=== PATIENT | male | born 1975 | race Caucasian/White ===

== ENCOUNTER → 2016-10-13 | Outpatient (CLI) | payer OTHER ==
[~2016-10-13] MED LIST: CONRAY-43 43% 50ML VIAL (Q9960) As Ordered ONE
--- NOTE | 2016-10-13 10:43 | REP ---
MR arthrography right shoulder: with pre and post intra-articular gadolinium enhanced saline injected imaging: History: Right shoulder pain, limited range of motion. Pain for greater than 5 years. Technique: The injection procedure is performed and dictated separately. Pre- and post intra-articular gadolinium enhanced saline injected imaging is acquired. Imaging planes include axial, oblique coronal, oblique sagittal and ABER projection images. T1 and T2-weighted scans are included with and without fat saturation. MRI findings: Pre-injection MR imaging shows cortical and medullary bone signal intensity to be normal. There is a small amount of subacromial subdeltoid bursal effusion. There is advanced diffuse swelling and increased signal intensity in the supraspinatus tendon on pre- injection oblique coronal T1 and T2-weighted scans consistent with advanced supraspinatus tendinosis. On post injection images, there is good filling and enhancement of the glenohumeral articulation. There is anterior inferior nondisplaced glenoid labral cartilage tear on axial post injection images. ABER images confirm this. No loose body is seen. Oblique coronal T1-weighted post injection images demonstrate a fairly large area of enhancement within the supraspinatus tendon consistent with an intra-substance partial-thickness tear. No enhancement is seen in the subacromial subdeltoid bursa. There is contrast enhancement undermining the superior labrum cartilage. The infraspinatus, subscapularis, and biceps tendons appear to be intact. Impression: 1. Large partial-thickness intra-substance supraspinatus tendon cuff tear. Advanced tendonitis/tendinosis. 2. Large nondisplaced anterior cartilaginous labral tear. Suspect SLAP component as well. Signed by Abimael Bullard MD 10/13/2016 12:08 P
--- NOTE | 2016-10-13 16:59 | REP ---
Procedure: Right shoulder arthrogram The procedure was performed under the direct supervision of Dr. Bullard. History: Right shoulder pain. The benefits and risks including but not limited to pain, infection, bleeding and anaphylaxis were explained to the patient and informed consent was obtained. Technique: The right glenohumeral joint space was localized using fluoroscopic guidance. The skin was prepped and draped in a sterile fashion. 1% lidocaine was used as a local anesthetic. Using fluoroscopic guidance a 22 gauge spinal needle was inserted and advanced into the joint. 0.5 ml of Conray 43 was injected to verify placement. 11 ml of a solution containing 20 ml of sterile saline and 0.15 ml of ProHance was injected into the joint. The needle was removed and the patient was taken to MRI for postprocedural imaging. The the patient tolerated the procedure well and there were no immediate complications. 1 second of fluoro time was utilized for this procedure. Reviewed by ELAINE Ruiz 10/13/2016 04:06 PSigned by Abimael Bullard MD 10/13/2016 04:51 P
== END | disposition home or self-care (01) ==
LOC: M RADPRO 07:15
PROVIDERS: ATTEND Physician Assistant
DX: M75.101 Unspecified rotator cuff tear or rupture of right shoulder, not specified as traumatic (principal); M75.81 Other shoulder lesions, right shoulder
CPT/HCPCS: 23350; 73040; 73223; A9576; Q9960

== ENCOUNTER 2016-11-20 09:20 | Emergency (ER) | payer OTHER ==
--- NOTE | 2016-11-20 10:02 | EDDOCDS ---
Physician Documentation [facility] Name: Anthony Calvo Age: 41 yrs Sex: Male : 1975 Arrival Date: 11/20/2016 Time: 09:20 Bed TR7 [place] [facility] [place]: 11/20/16 09:57 Discharged to Home/Self Care. Impression: Acute pharyngitis, Viral infection, unspecified. - Condition is Stable. - Discharge Instructions: Pharyngitis, Mmdk-yl-Mjgf, Viral Infections, Igkq-Ma-Mzll. - Medication Reconciliation, Local Pharmacy Hours form. - Follow up: Paul Kingsley [facility]; When: Tomorrow; Reason: Further diagnostic work-up, Recheck today's complaints, Continuance of care. - Problem is new. - Symptoms are unchanged. Historical: - Allergies: no known allergies; - Home Meds: 1. baclofen 10 mg Oral tab as needed - PMHx: Chronic Back pain; - PSHx: Hernia repair- Left inguinal; Hernia repair- Right inguinal; Knee surgery- Right; - Social history: Smoking status: Patient states former smoker of tobacco. No barriers to communication noted, The patient speaks fluent Welsh, Speaks appropriately for age. - Family history: Not pertinent. - : The pt / caregiver states he / she is not on anticoagulants. Home medication list is obtained from the patient. - Exposure Risk Screening:: None identified. Vital Signs: 11/20 09:22 BP 166 / 87; Pulse 93; Resp 18; Temp 99.3; Pulse Ox 96% ; Weight 97.52 kg / 214.99 lbs; jlm Height 69 in. (175.26 cm); Pain 7/10; 09:22 Body Mass Index 31.75 (97.52 kg, 175.26 cm) jlm MDM: 09:36 Strep Screen, Nursing ordered. btw 09:42 Financial registration complete. lg 09:49 GATS (NEGATIVE STREP SCREEN) Ordered. EDMS Signatures: Dispatcher [employer] EDJohnathan Hanson, RN Zaira Patricia RN RN srm Ganter, LoriLee, Reg Reg lg Thomas Haider PA PA btw MTDD
--- NOTE | 2016-11-20 10:02 | EDDOCDS ---
Nurse's Notes [facility] Name: Anthony Calvo Age: 41 yrs Sex: Male : 1975 Arrival Date: 11/20/2016 Time: 09:20 Bed TR7 Private [place]: [place] [facility] [place]: Acute pharyngitis;Viral infection, unspecified Presentation: 11/20 09:26 Presenting complaint: Patient states: sore throat since yesterday worse today. aches bcj all over today. ? temp at home. no nasal drainage. + cough - just stopped smoking. Risk factors: Stridor is not present. Drooling is not present. Shortness of breath is not present. Cellulitis is not present. Adult Sepsis Screening: The patient does not have new or worsening altered mentation. Patient's respiratory rate is less than 22. Systolic blood pressure is greater than 100. Patient has a qSOFA score of 0- Negative Sepsis Screen. Suicide/Homicide risk assessment- the patient denies having any suicidal and/or homicidal ideations and does not present with any other emotional, behavioral or mental health complaints. Status: Transition of care: patient was not received from another setting of care. 09:26 Acuity: ERLIN Level 4 [facility] 09:26 Method Of Arrival: Walkin/Carried/Asstd [facility] Triage Assessment: 09:31 General: Appears in no apparent distress, comfortable. Pain: Pain currently is 7 out of bcj 10 on a pain scale. Pt Declines HIV testing. EENT: No deficits noted. Historical: - Allergies: no known allergies; - Home Meds: 1. baclofen 10 mg Oral tab as needed - PMHx: Chronic Back pain; - PSHx: Hernia repair- Left inguinal; Hernia repair- Right inguinal; Knee surgery- Right; - Social history: Smoking status: Patient states former smoker of tobacco. No barriers to communication noted, The patient speaks fluent Kenyan, Speaks appropriately for age. - Family history: Not pertinent. - : The pt / caregiver states he / she is not on anticoagulants. Home medication list is obtained from the patient. - Exposure Risk Screening:: None identified. Screenin:00 Screening information is obtained from the patient. Fall risk: No risks identified. srm Assistance ADL's: requires no assistance with activities of daily living. Abuse/DV Screen: The patient / caregiver reports he/she is: not in a situation that causes fear, pain or injury. Nutritional screening: No deficits noted. Advance Directives: There is no active DNR order. home support is adequate. Assessment: 10:00 General: Appears in no apparent distress, Behavior is appropriate for age, cooperative. srm EENT: Throat deferred to PA. Reports sore throat. Respiratory: Airway is patent Respiratory effort is even, unlabored. Derm: No deficits noted. Vital Signs: 09:22 BP 166 / 87; Pulse 93; Resp 18; Temp 99.3; Pulse Ox 96% ; Weight 97.52 kg; Height 69 jlm in. (175.26 cm); Pain 7/10; 09:22 Body Mass Index 31.75 (97.52 kg, 175.26 cm) [facility] Vitals: :22 Log In Time: November 20, 2016 at 09:22. jlm 09:49 Strep Screen is obtained and tested: Negative, a GATSNEG culture is ordered in [facility] dls and sent. ED Course: 09:21 Patient visited by Rach Townsend Unit Clerk. jlm 09:21 Patient moved to Waiting jlm 09:22 [place] [facility] Physician. jlm 09:23 Patient moved to Pre RCE jlm 09:30 Triage Initiated bc 09:32 Patient visited by Johnathan Vincent RN. bcj 09:32 Thomas Haider PA is PHCP. btw 09:32 Violeta Salinas MD is Attending Physician. btw 09:32 Patient moved to Triage 1 bcj 09:33 Patient visited by Thomas Haider PA. btw 09:50 GATS (NEGATIVE STREP SCREEN) Sent. dls 09:56 [facility]. btw 10:00 The patient / caregiver is instructed regarding the plan of care and ED course. Patient srm has correct armband on for positive identification. 10:00 No IV's were initiated during this patient's visit. No procedures done that require srm assistance. 10:01 Patient moved to 7 [facility] Order Results: There are currently no results for this order. Outcome: 09:57 Discharge ordered by Provider. btw 10:00 Discharge Assessment: Patient awake, alert and oriented x 3. No cognitive and/or srm functional deficits noted. Patient verbalized understanding of disposition instructions. patient administered narcotics - no. The following High Risk Discharge criteria are identified: None. Discharged to home ambulatory. Condition: good Condition: stable. Discharge instructions given to patient, Instructed on discharge instructions, follow up and referral plans. medication usage, diet, Demonstrated understanding of instructions, medications, Pt was receptive of discharge instructions/ teaching. No special radiology studies were completed. Property sent home with patient. 10:01 Patient left the ED. srm Signatures: Johnathan Vincent RN Zaira Patricia RN RN srm Scott, Debra, RN RN Thomas Andrade PA PA btw Mitchell, Jessie, Sander Setter Unit [facility] MTDD
--- NOTE | 2016-11-22 11:02 | EDDOCDS ---
Physician Documentation [facility] Name: Anthony Calvo Age: 41 yrs Sex: Male : 1975 Arrival Date: 11/20/2016 Time: 09:20 Bed TR7 Private MD: Car[place] [facility] [place] Disposition: 11/20/16 09:57 Discharged to Home/Self Care. Impression: Acute pharyngitis, Viral infection, unspecified. - Condition is Stable. - Discharge Instructions: Pharyngitis, Aflo-ut-Rzdt, Viral Infections, Mcso-Nb-Nhle. - Medication Reconciliation, Local Pharmacy Hours form. - Follow up: Paul Kingsley [facility]; When: Tomorrow; Reason: Further diagnostic work-up, Recheck today's complaints, Continuance of care. - Problem is new. - Symptoms are unchanged. Historical: - Allergies: no known allergies; - Home Meds: 1. baclofen 10 mg Oral tab as needed - PMHx: Chronic Back pain; - PSHx: Hernia repair- Left inguinal; Hernia repair- Right inguinal; Knee surgery- Right; - Social history: Smoking status: Patient states former smoker of tobacco. No barriers to communication noted, The patient speaks fluent Greek, Speaks appropriately for age. - Family history: Not pertinent. - : The pt / caregiver states he / she is not on anticoagulants. Home medication list is obtained from the patient. - Exposure Risk Screening:: None identified. Vital Signs: 11/20 09:22 BP 166 / 87; Pulse 93; Resp 18; Temp 99.3; Pulse Ox 96% ; Weight 97.52 kg / 214.99 lbs; jlm Height 69 in. (175.26 cm); Pain 7/10; 09:22 Body Mass Index 31.75 (97.52 kg, 175.26 cm) jl MDM: 09:36 Strep Screen, Nursing ordered. btw 09:42 Financial registration complete. lg 09:49 GATS (NEGATIVE STREP SCREEN) Ordered. EDMS 10:24 [facility] Payment Agreement was scanned into [employer] and attached to record. lg 22:13 T-Sheet-- Draft Copy was scanned into [employer] and attached to record. klr Signatures: Dispatcher [employer] EDMS Johnathan Vincent RN RN bcj Michelson, Staci, RN RN srm Ganter, LoriLee, Reg Reg lg Thomas Haider PA PA btw Redder, Kathie klr The chart was reviewed and I authenticate all verbal orders and agree with the evaluation and treatment provided.Attachments: 10:24 [facility] Payment Agreement lg 22:13 T-Sheet-- Draft Copy klr Chart Complete MTDD
--- NOTE | 2016-11-22 11:02 | EDDOCDS ---
Nurse's Notes [facility] Name: Anthony Calvo Age: 41 yrs Sex: Male : 1975 Arrival Date: 11/20/2016 Time: 09:20 Bed TR7 Private MD: Carole [facility] [place] Diagnosis: Acute pharyngitis;Viral infection, unspecified Presentation: 11/20 09:26 Presenting complaint: Patient states: sore throat since yesterday worse today. aches bcj all over today. ? temp at home. no nasal drainage. + cough - just stopped smoking. Risk factors: Stridor is not present. Drooling is not present. Shortness of breath is not present. Cellulitis is not present. Adult Sepsis Screening: The patient does not have new or worsening altered mentation. Patient's respiratory rate is less than 22. Systolic blood pressure is greater than 100. Patient has a qSOFA score of 0- Negative Sepsis Screen. Suicide/Homicide risk assessment- the patient denies having any suicidal and/or homicidal ideations and does not present with any other emotional, behavioral or mental health complaints. Status: Transition of care: patient was not received from another setting of care. 09:26 Acuity: ERLIN Level 4 [facility] 09:26 Method Of Arrival: Walkin/Carried/Asstd [facility] Triage Assessment: 09:31 General: Appears in no apparent distress, comfortable. Pain: Pain currently is 7 out of bcj 10 on a pain scale. Pt Declines HIV testing. EENT: No deficits noted. Historical: - Allergies: no known allergies; - Home Meds: 1. baclofen 10 mg Oral tab as needed - PMHx: Chronic Back pain; - PSHx: Hernia repair- Left inguinal; Hernia repair- Right inguinal; Knee surgery- Right; - Social history: Smoking status: Patient states former smoker of tobacco. No barriers to communication noted, The patient speaks fluent Mauritian, Speaks appropriately for age. - Family history: Not pertinent. - : The pt / caregiver states he / she is not on anticoagulants. Home medication list is obtained from the patient. - Exposure Risk Screening:: None identified. Screenin:00 Screening information is obtained from the patient. Fall risk: No risks identified. srm Assistance ADL's: requires no assistance with activities of daily living. Abuse/DV Screen: The patient / caregiver reports he/she is: not in a situation that causes fear, pain or injury. Nutritional screening: No deficits noted. Advance Directives: There is no active DNR order. home support is adequate. Assessment: 10:00 General: Appears in no apparent distress, Behavior is appropriate for age, cooperative. srm EENT: Throat deferred to PA. Reports sore throat. Respiratory: Airway is patent Respiratory effort is even, unlabored. Derm: No deficits noted. Vital Signs: 09:22 BP 166 / 87; Pulse 93; Resp 18; Temp 99.3; Pulse Ox 96% ; Weight 97.52 kg; Height 69 jlm in. (175.26 cm); Pain 7/10; 09:22 Body Mass Index 31.75 (97.52 kg, 175.26 cm) [facility] Vitals: 09:22 Log In Time: November 20, 2016 at 09:22. jlm 09:49 Strep Screen is obtained and tested: Negative, a GATSNEG culture is ordered in [facility] dls and sent. ED Course: 09:21 Patient visited by Rach Townsend Unit Clerk. jlm 09:21 Patient moved to Waiting jlm 09:22 Carole [facility] is Private Physician. jlm 09:23 Patient moved to Pre RCE jlm 09:30 Triage Initiated bc 09:32 Patient visited by Johnathan Vincent RN. bcj 09:32 Thomas Haider PA is PHCP. btw 09:32 Violeta Salinas MD is Attending Physician. btw 09:32 Patient moved to Triage 1 bcj 09:33 Patient visited by Thomas Haider PA. btw 09:50 GATS (NEGATIVE STREP SCREEN) Sent. dls 09:56 [facility] is Referral Physician. btw 10:00 The patient / caregiver is instructed regarding the plan of care and ED course. Patient srm has correct armband on for positive identification. 10:00 No IV's were initiated during this patient's visit. No procedures done that require srm assistance. 10:01 Patient moved to TR7 bc 10:19 Patient name changed from Anthony\S\\S\Calvo\S\ to Anthony\S\ \S\Calvo. EDMS 10:24 [facility] Payment Agreement was scanned into [employer]enth[employer] and attached to record. lg 22:13 T-Sheet-- Draft Copy was scanned into [employer]enth[employer] and attached to record. klr Order Results: Lab Order: GATS (NEGATIVE STREP SCREEN); SPEC'M 11/20/16 09:39 Test: GATS CULTURE (NEG STREP SCR); Value: GATS RESULT POSITIVE FOR STREP PYOGENES (GROUP A); Abnormal: Abnormal; Status: F Test: GATS CULTURE (NEG STREP SCR); Value: <EXTERNAL COMMENT eCWMed> FULL REPORT IN LAB NOTES (eCW and Medent).; Status: F Test: GATS CULTURE (NEG STREP SCR); Value: ORGANISM 1: STREPTOCOCCUS PYOGENES GRP A; Status: F Test: GATS CULTURE (NEG STREP SCR); Value: STREPTOCOCCUS PYOGENES GRP A; Status: F Test: GATS CULTURE (NEG STREP SCR); Value: QUANTITY OF GROWTH HEAVY; Status: F Outcome: 09:57 Discharge ordered by Provider. btw 10:00 Discharge Assessment: Patient awake, alert and oriented x 3. No cognitive and/or srm functional deficits noted. Patient verbalized understanding of disposition instructions. patient administered narcotics - no. The following High Risk Discharge criteria are identified: None. Discharged to home ambulatory. Condition: good Condition: stable. Discharge instructions given to patient, Instructed on discharge instructions, follow up and referral plans. medication usage, diet, Demonstrated understanding of instructions, medications, Pt was receptive of discharge instructions/ teaching. No special radiology studies were completed. Property sent home with patient. 10:01 Patient left the ED. srm Signatures: Dispatcher [facility] EDNY Johnathan Vincent RN RN bcj Michelson, Staci, RN RN srm Scott, Debra, RN RN dls Ganter, LoriLee, Thomas Molina lg, PA PA btw Rach Townsend, Coiled Tubing Supervisor Unit Omaira Tucker Chart Complete MTDD
--- NOTE | 2016-11-22 11:02 | EDDOCDS ---
Physician Documentation [facility] Name: Anthony Calvo Age: 41 yrs Sex: Male : 1975 Arrival Date: 11/20/2016 Time: 09:20 Bed TR7 Private MD: Carole [facility] [place] Disposition: 11/20/16 09:57 Discharged to Home/Self Care. Impression: Acute pharyngitis, Viral infection, unspecified. - Condition is Stable. - Discharge Instructions: Pharyngitis, Dgeg-lt-Tqko, Viral Infections, Xhqd-Mj-Tldq. - Medication Reconciliation, Local Pharmacy Hours form. - Follow up: Paul Kingsley [facility]; When: Tomorrow; Reason: Further diagnostic work-up, Recheck today's complaints, Continuance of care. - Problem is new. - Symptoms are unchanged. Historical: - Allergies: no known allergies; - Home Meds: 1. baclofen 10 mg Oral tab as needed - PMHx: Chronic Back pain; - PSHx: Hernia repair- Left inguinal; Hernia repair- Right inguinal; Knee surgery- Right; - Social history: Smoking status: Patient states former smoker of tobacco. No barriers to communication noted, The patient speaks fluent Bulgarian, Speaks appropriately for age. - Family history: Not pertinent. - : The pt / caregiver states he / she is not on anticoagulants. Home medication list is obtained from the patient. - Exposure Risk Screening:: None identified. Vital Signs: 11/20 09:22 BP 166 / 87; Pulse 93; Resp 18; Temp 99.3; Pulse Ox 96% ; Weight 97.52 kg / 214.99 lbs; jlm Height 69 in. (175.26 cm); Pain 7/10; 09:22 Body Mass Index 31.75 (97.52 kg, 175.26 cm) jl MDM: 09:36 Strep Screen, Nursing ordered. btw 09:42 Financial registration complete. lg 09:49 GATS (NEGATIVE STREP SCREEN) Ordered. EDMS 10:24 [facility] [place] Agreement was scanned into [employer] and attached to record. lg 22:13 T-Sheet-- Draft Copy was scanned into [employer] and attached to record. klr Signatures: Dispatcher [employer] EDMS Johnathan Vincent RN RN bcj Michelson, Staci, RN RN srm Ganter, LoriLee, Reg Reg lg Thomas Haider PA PA btw Redder, Kathie klr The chart was reviewed and I authenticate all verbal orders and agree with the evaluation and treatment provided.Attachments: 10:24 [facility] [place] Agreement lg 22:13 T-Sheet-- Draft Copy klr Chart Complete MTDD
== END 2016-11-20 10:01 | disposition home or self-care (01) ==
LOC: M ED 09:20
DX: J02.9 Acute pharyngitis, unspecified (principal); B34.9 Viral infection, unspecified; G89.29 Other chronic pain; M54.9 Dorsalgia, unspecified; Z87.891 Personal history of nicotine dependence

== ENCOUNTER → 2017-01-13 | Outpatient (REF) | payer OTHER ==
[2017-01-13 14:03] LABS: % NORMAL FORMS 4 % (>=4); IMMOTILITY 65 %; NON PROGRESSIVE MOTILITY (c) 19 %; PROGRESSIVE MOTILITY (a) 16 % (>=32); SPERM ABNORMAL FORMS WBC'S NOTED; SPERM# 96.8 M/Ejac (33-46); TOTAL FUNCTIONAL 1.6 M/Ejac.; TOTAL MOTILITY 35 % (>=40); TOTAL PROGRESSIVE SPERM 15.6 M/Ejac.
== END ==
LOC: M LAB REF 13:44
DX: N46.9 Male infertility, unspecified (principal)

== ENCOUNTER → 2017-03-27 | Outpatient (REF) | payer OTHER ==
[2017-03-27 11:46] LABS: % NORMAL FORMS 5 % (>=4); IMMOTILITY 51 %; NON PROGRESSIVE MOTILITY (c) 17 %; PROGRESSIVE MOTILITY (a) 24 % (>=32); SPERM# 96.4 M/Ejac (33-46); TOTAL MOTILITY 41 % (>=40)
[2017-03-27 11:47] LABS: TOTAL FUNCTIONAL 2.8 M/Ejac.
== END ==
LOC: M LAB REF 10:47
PROVIDERS: ATTEND Physician Assistant
DX: N46.9 Male infertility, unspecified (principal)